=== PATIENT | female | born 1965 | race Caucasian/White ===

== ENCOUNTER 2021-08-09 10:03 | Emergency (ER) | payer BC, SELFPAY ==
--- NOTE | ~2021-08-09 | XR_ITS ---
EXAMINATION: XR chest 2V EXAM DATE: 08/09/2021 10:27 INDICATION: Palpitations, high blood pressure. TECHNIQUE: Frontal and lateral projections of the chest obtained and reviewed. Comparison is made to prior examination from 06/13/2015. FINDINGS: The lungs are clear. There are no pleural effusions. The cardiomediastinal silhouette is within normal limits. There is no pneumothorax suspected. The bones and soft tissues are unremarkab le. IMPRESSION: No acute cardiopulmonary findings. Reviewed, dictated and finalized at location B.
[2021-08-09 10:11] VITALS: BP 199/99; PULSE 88; RESP 16; TEMP 36.7; O2SAT 97
--- NOTE | 2021-08-09 10:15 | ECG_ITS ---
Measurements Intervals [place] Rate: 90 P: 60 ME: 149 QRS: 16 QRSD: 88 T: -5 QT: 343 QTc: 421 Interpretive Statements SINUS RHYTHM NONSPECIFIC T-WAVE ABNORMALITY ABNORMAL ECG NO PREVIOUS ECG AVAILABLE FOR COMPARISON Electronically Signed On 08-09-2021 15:53:45 CDT by Dimitris Flores M.D.
--- NOTE | 2021-08-09 10:19 | ED.ARRPALP ---
HPI - Arrhythmia/Palpitations General Chief Complaint: Arrhythmia/Palpitations Stated Complaint: increased HR Time Seen by Provider: 08/09/21 10:10 History of Present Illness HPI narrative: 55-year-old female with no medical history presents the emergency room complaints of palpitations and fast heart rate that occurred just prior to arrival. Patient states that she has experienced similar symptoms intermittently for several weeks. Patient states the duration of her fast heart rotations usually last 2 to 3 minutes and spontaneously resolve. Patient is not. Patient does admit to snoring at night. Patient denies near syncope or syncopal episode. Patient denies chest pain Related Data Allergies Allergy/AdvReac Type Severity Reaction Status Date / Time No Known Allergies Allergy Mild Verified 08/09/21 10:17 Review of Systems Review of Systems: CONSTITUTIONAL: Denies fever, chills, or sweats. EYES: Denies visual changes, redness, or discharge. ENT: Denies rhinorrhea, congestion, sore throat, or otalgia. CARDIOVASCULAR: Reports palpitations RESPIRATORY: Denies cough or dyspnea. GASTROINTESTINAL: Denies abdominal pain, nausea, vomiting, or diarrhea. GENITOURINARY: Denies dysuria or hematuria. SKIN: Denies rash or itching. MUSCULOSKELETAL: Denies back pain, joint pain, or myalgia. NEUROLOGIC: Denies headache, numbness, dizziness, or weakness. PSYCHIATRIC: Denies anxiety or depression. Exam Narrative: GENERAL: Well-appearing, well-nourished, and in no acute distress. HEAD: Normocephalic, atraumatic. EYES: PERRLA and EOMI. CHEST: Clear to auscultation. No respiratory distress. No wheezes rales or rhonchi HEART: Regular rate and rhythm. No murmur heard. Normal peripheral pulses. ABDOMEN: Soft, nontender, nondistended, normal active bowel sounds. EXTREMITIES: Normal range of motion. No edema. SKIN: Warm, dry, no rash. NEURO: No focal deficits. Alert and oriented x3. PSYCH: Normal mood and affect. Course Vital Signs Vital signs: Vital Signs Temperature 36.7 C 08/09/21 10:11 Pulse Rate 88 08/09/21 10:11 Respiratory Rate 16 08/09/21 10:11 Blood Pressure 199/99 H 08/09/21 10:11 Pulse Oximetry 97 08/09/21 10:11 Temperature 36.7 C 08/09/21 10:11 Pulse Rate 83 08/09/21 10:52 Respiratory Rate 18 08/09/21 10:52 Blood Pressure 169/93 H 08/09/21 10:52 Pulse Oximetry 99 08/09/21 10:52 MDM - Arrhythmia/Palpitations MDM Narrative Medical decision making narrative: 55-year-old female presented emergency room with palpitations of lasted approximately 10 minutes while at work. Patient states that she has been experiencing the symptoms intermittently for the past 3 to 6 months, but have become more regular over the last couple of weeks. Patient states that she does get shortness of breath and some dizziness associated with this palpitations. CBC, CMP and troponin were unremarkable. Will refer patient to cardiology for further evaluation. Differential Diagnosis Differential diagnosis: Likely palpitations Lab Data Attestation: I reviewed the patient's lab results. Result diagrams: 08/09/21 10:43 08/09/21 10:43 Labs: Lab Results 08/09/21 08/09/21 08/09/21 Range/Units 10:37 10:43 10:43 WBC 5.6 (4.5-10.0) K/mm3 RBC 4.62 (4.2-5.4) M/mm3 Hgb 13.7 (12.0-15.0) g/dL Hct 41.0 (37.0-47.0) % MCV 88.7 (80-100) fl MCH 29.7 (26-34) pg MCHC 33.4 (32-36) g/dl RDW 12.4 (11.5-14.5) % Plt Count 316 (150-375) k/mm3 MPV 9.0 (7.4-10.4) fl Immature Gran % (Auto) 0.2 (0-0.5) % Neut % (Auto) 65.6 (45.5-73.1) % Lymph % (Auto) 22.8 (18.3-44.2) % Harney % (Auto) 8.6 H (2.6-8.5) % Eos % (Auto) 2.3 (0-4.4) % Baso % (Auto) 0.5 (0.2-1.2) % Lymph # (Auto) 1.27 (0.9-3.2) K/mm3 Harney # (Auto) 0.5 (0.1-0.6) K/mm3 Eos # (Auto) 0.1 (0-0.3) K/mm3 Baso # (Auto) 0.0 (0.0-0.1) K/mm3 Abs Immat Gran (auto) 0
[2021-08-09 10:51] LABS: Basophils Percent Auto 0.5 % (0.2-1.2); Eosinophils Absolute Auto 0.1 K/mm3 (0-0.3); Eosinophils Percent Auto 2.3 % (0-4.4); Hemoglobin 13.7 g/dL (12.0-15.0); Immature Granulocyte Absolute 0.01 K/mm3 (0.00-0.031); Immature Granulocyte Percent A 0.2 % (0-0.5); Lymphocytes Absolute Auto 1.27 K/mm3 (0.9-3.2); Lymphocytes Percent Auto 22.8 % (18.3-44.2); Mean Corpuscular HGB Conc 33.4 g/dl (32-36); Mean Corpuscular Hemoglobin 29.7 pg (26-34); Mean Corpuscular Volume 88.7 fl (80-100); Monocytes Absolute Auto 0.5 K/mm3 (0.1-0.6); Monocytes Percent Auto 8.6 % (2.6-8.5); Neutrophils Absolute Auto 3.6 K/mm3 (1.3-6.7); Neutrophils Percent Auto 65.6 % (45.5-73.1); Platelet Count Result 316 k/mm3 (150-375); Red Blood Count 4.62 M/mm3 (4.2-5.4); Red Cell Distribution Width 12.4 % (11.5-14.5); White Blood Count 5.6 K/mm3 (4.5-10.0)
[2021-08-09 10:51] LABS: Appearance Urine Clear (Clear); Bilirubin Urine Negative (Negative); Blood Urine Trace-lysed (Negative); Color Urine Yellow (Yellow); Glucose Urine UA Negative (Negative); Ketones Urine Negative (Negative); Leukocyte Esterase Ur Negative LEU/UL (Negative); Nitrate Urine Negative (Negative); Protein Urine Negative (Negative); Specific Grav Ur 1.015 (1.001-1.035); Urobilinogen Urine 0.2 mg/dL (<2.0); pH Urine 6.5 (5.0-9.0)
[2021-08-09 10:52] VITALS: BP 169/93; PULSE 83; RESP 18; O2SAT 99
[2021-08-09 10:52] LABS: Add Urine Microscopic? YES
[2021-08-09 11:03] LABS: Bacteria Urine Trace /hpf; Mucus Urine Rare /lpf; RBC Urine 0-2 /hpf (0-2); Squamous Epithelial Cell Urine Rare /hpf (Few); WBC Urine 0-3 /hpf
[2021-08-09 11:06] LABS: Alanine Aminotransferase 31 U/L (4-35); Albumin Level 4.7 g/dL (3.5-5.1); Alkaline Phosphatase 80 U/L (38-126); Anion Gap 7 mmol/L (8-16); Aspartate Amino Transferase 38 U/L (14-36); Bilirubin,Total 0.7 mg/dL (0.2-1.3); Blood Urea Nitrogen 17 mg/dL (7-17); Calcium 9.1 mg/dL (8.4-10.2); Carbon Dioxide 25 mmol/L (22-30); Chloride 106 mmol/L (98-107); Estimated CRCL calculation 79 ml/min; Estimated Glomerular Filt Rate > 60; Glucose 108 mg/dL (65-110); Magnesium 1.9 mg/dL (1.6-2.3); Potassium 4.5 mmol/L (3.4-5.0); Sodium 138 mmol/L (137-145)
[2021-08-09 11:14] LABS: Troponin I < 0.012 ng/mL (0.000-0.034)
[2021-08-09 11:44] VITALS: BP 146/84; PULSE 82; RESP 18; O2SAT 97
[2021-08-09 12:06] VITALS: BP 160/92; PULSE 78; RESP 18; O2SAT 99
== END 2021-08-09 11:58 | disposition home or self-care (01) ==
PROVIDERS: Emergency Provider Nurse Practitioner Family
DX: R00.2 Palpitations (principal); R94.31 Abnormal electrocardiogram [ECG] [EKG]
CPT/HCPCS: 36415; 71046; 80053; 81001; 83735; 84484; 85025; 93005; 99284

== ENCOUNTER 2024-07-26 10:15 | Outpatient (CLI) | payer BC, SELFPAY ==
--- NOTE | ~2024-07-26 | MR_ITS ---
MRI of the right foot CLINICAL HISTORY: Metatarsalgia TECHNIQUE: Axial proton-density and proton-density fat-sat images, sagittal T1-weighted and STIR imag es, and coronal T1-weighted and proton-density fat-sat images were performed. FINDINGS: Questionable minimal amorphous marrow edema in the second proximal phalanx. Remaining bone marrow signals are unremarkable. No fracture. No evidence for osteitis. There are minimal scattered d egenerative changes of interphalangeal joints of the toes. There is minimal degenerative change at th e first metatarsophalangeal joint. No significant joint effusion seen. Flexor and extensor tendons are intact. Questionable minimal intermetatarsal bursitis at the first in terspace. No Cota's neuroma evident. No other soft tissue mass or fluid collection seen. Visualized plantar fascia intact. Lisfranc ligament is intact. IMPRESSION: Questionable minimal amorphous marrow edema in the second proximal phalanx. Correlate for bone contus ion or stress response. Minimal degenerative changes, as above. Probable minimal intermetatarsal bursitis at the first interspace. Reviewed, dictated and finalized at [facility]. IMPRESSION: Questionable minimal amorphous marrow edema in the second proximal phalanx. Cor relate for bone contusion or stress response. Minimal degenerative changes, as above. Probable minimal intermetatarsal bursitis at the first interspace.
--- OUTSIDE RECORDS SUMMARY | 2024-07-26 10:39 | XMS_ITS | CONTINUITY OF CARE DOCUMENT ---
Author Name macario tomatamika Address Unknown Organization [facility] Address [id number] [place] [address] [address] [place] [address] Phone [phone] Care Team Providers Care Harp Repairer Name Role Phone Radha BLOCK, Juan Francisco Gilliland Unavailable [phone] VANESA BLOCK, JAILYN Robison Unavailable VANESA BLOCK, JAILYN Robison Unavailable PROBLEMS Condition Status Date Provider Notes Cardiology examination active Virginie Garcia MD ASCUS of cervix with negativ e high risk HPV active Juan Francisco Garcia MD Imported from [employer] (21-Dec-2022 at 03:32:38 PM) Achilles tendinitis of right lower extremity active Juan Francisco Garcia MD Imported from [employer] [facility] (21-Dec-2022 at 03:32:38 PM) Asthma active ? Juan Francisco hamm MD Imported from [facility] [facility] (21-Dec-2022 at 03:32:38 PM) Congenital abnormality of uterus active ? Juan Francisco Garcia MD Imported from [facility] [facility] (21-Dec-2022 at 03:32:38 PM) Elevated CA-125 active Juan Francisco talbot MD Imported from [facility] [facility] (21-Dec-2022 at 03:32:38 PM) Headache active Juan Francisco hamm MD Imported from [facility] [facility] (21-Dec-2022 at 03:32:38 PM) History of section active Juan Francisco Garcia MD Imported from [facility] [facility] (21-Dec-2022 at 03:32:38 PM) Migraine active Juan Francisco hamm MD Imported from [facility] [facility] (21-Dec-2022 at 03:32:38 PM) Palpitations active Juan Francisco hamm MD Imported from [facility] [facility] (21-Dec-2022 at 03:32:38 PM) Plantar fasciitis of right foot active 7 Juan Francisco Garcia MD Imported from [facility] [facility] (21-Dec-2022 at 03:32:38 PM) Status post endometrial ablation active Juan Francisco Garcia MD Imported from [facility] [facility] (21-Dec-2022 at 03:32:38 PM) Tubal ligation status active Martínez Garcia MD Imported from [facility] [facility] (21-Dec-2022 at 03:32:38 PM) Tubal ligation status active Martínez Garcia MD Imported from [facility] (21-Dec-2022 at 03:32:38 PM) Verruca plantaris active Juan Francisco Garcia MD Imported from [facility] (21-Dec-2022 at 03:32:38 PM) Vitamin D deficiency active Juan Francisco Garcia MD Imported from [facility] (21-Dec-2022 at 03:32:38 PM) HTN essential active Juan Francisco king MD Hypercholesterolemia active Juan Francisco Garcia MD Snoring active Juan Francisco hamm MD Family Hx heart disease active Roshan Garcia MD SVT active Juan Francisco hamm MD ENCOUNTERS Date Type Provider Location Encounter Diag nosis - In-person encounter Office Visit Juan Francisco Garcia MD [facility] - In-person encounter Office Visit Juan Francisco Garcia MD [facility] Cardiology examinationASCUS of cervix wi th negative high risk HPVAchilles tendinitis of right lower extremityAsthmaCongenital abnormality of uterusElevated CA-125HeadacheHistory of sectionMigrainePalpitationsPlantar fasciitis of right footStatus post endometrial ablationTubal ligation statusTubal ligation statusVerruca plantarisVitamin D deficiencyHTN essentialHypercholesterolemiaSnoringFamily Hx heart diseaseSVT VITAL SIGNS Date Observation Value Provider Body Mass Index (Ratio) 32.73 kg/m2 Roshan Garcia MD blood pressure, diastolic 86 mm[Hg] cami Rebeca blood pressure, systolic 150 mm[Hg] She rrwashington Jose respiratory rate E&M 20 /min Laure Jose pulse rate 67 /min Laure Jose oxygen saturation, oximetry 98 % Laure Jose blood pressure, cuff size regular cami Jose weight E&M 184.8 [lb_av] Laure Jose height E&M 63 [in_i] Laure Jose weight E&M 188 [lb_av] Munira Bates polo Body Mass Index (Ratio) 33.30 kg/m2 Roshan Garcia MD pulse rate 71 /min Laure Jose blood pressure, diastolic 91 mm[Hg] cami Jose blood pressure, systolic 164 mm[Hg] She rrwashington Jose respiratory rate E&M 20 /min Laure Jose oxygen saturation, oximetry 96 % Laure Jose blood pressure, cuff size regular cami Jose weight E&M 188 [lb_av] Laure Jose height E&M 63 [in_i] Laure Rebeca ALLERGIES Allergy Name Onset Date Reaction Criticality Status Latex Unknown Low Criticality active HISTORY OF MEDICATION USE Medication Status Instructions Dates Provider Indications Com ments atorvastatin 20 mg tablet active TAKE 1 TABLET DAILY Kylia John Cardizem CD 120 mg capsule,extended release 24hr active Take 1 capsule by mouth once a day Bettina Ahmadi Cardizem CD 120 mg capsule,extended release 24hr completed Take 1 capsule by mouth once daily - Bettina Ahmadi atorvastatin 20 mg tablet completed Take 1 tablet by mouth once a day TAKE 1 TABLET BY MOUTH DAILY - Kati Lopez sertraline 100 mg tablet active 100 mg by mouth Juan Francisco Garcia MD Imported from [employer] (22-Dec-19 at 03:32:38 PM) scopolamine base 1 mg over 3 days patch 3 day completed null - Ian Ramírez NP Imported from [employer] (22-Dec-19 at 03:32:38 PM) rizatriptan 10 mg tablet,disintegra ting active null Juan Francisco Garcia MD Imported from [employer] [facility] (22-Dec-19 at 03:32:38 PM) phentermine 37.5 mg tablet completed null - Ian Ramírez NP Imported from [facility] (22-Dec-19 at 03:32:38 PM) omeprazole 20 mg capsule,delayed release(DR/EC) active null Juan Francisco Garcia MD Imported from [employer] [facility] (22-Dec-19 at 03:32:38 PM) montelukast 4 mg granules in packet completed 4 mg - Ian Ramírez NP Imported from [employer] [facility] (22-Dec-19 at 03:32:38 PM) IBUPROFEN 800 MG TABS completed 800 mg by mouth - Ian Ramírez NP Imported from [facility] (22-Dec-19 at 03:32:38 PM) ergocalciferol (vitamin D2) 1,250 mcg (50,000 unit) capsule active null Juan Francisco Garcia MD Imported from [facility] (22-Dec-19 at 03:32:38 PM) diclofenac sodium 75 mg tablet,delayed release (DR/EC) active null Juan Francisco Garcia MD Imported from [facility] (22-Dec-19 at 03:32:38 PM) albuterol sulfate 90 mcg/actuation HFA aerosol inhaler active null Juan Francisco Garcia MD Imported from [facility] (22-Dec-19 at 03:32:38 PM) COVID-19 antigen test completed null - Ian Ramírez NP Imported from [facility] (22-Dec-19 at 03:32:38 PM) alprazolam 0.25 mg tablet completed 0.25 mg by mouth - Ian Ramírez NP Imported from [facility] (22-Dec-19 at 03:32:38 PM) SOCIAL HISTORY Date Observation Value Provider social history reviewed E&M revi ewed - no changes required Ian Ramírez NP social history E&M S moking History: Lupillo vora has never smoked. Ian Ramírez NP smoking status Never smoker Laure Jose social history E&M S moking History: Lupillo vora has never smoked. Juan Francisco Garcia MD social history reviewed E&M revi ewed - no changes required Juan Francisco Garcia MD smoking status Never smoker Laure Jose INSURANCE PROVIDERS Payer name Policy type / Coverage type [employer] party ID [facility] [id number] ADVANCE DIRECTIVES Name Date DISCUSSED - NO DECISION MADE TREATMENT PLAN Date Name Performer [id number],C, T he following medications were removed from the medication list: Montelukast 4 Mg Granules In Packet (Montelukast) ..... 4 mg Her updated medication list for this problem includes: Albuterol Sulfate 90 Mcg/actuation Hfa Aerosol Inhaler (Albuterol sulfate) ..... Null Montelukast 4 Mg Granules In Packet (Montelukast) ..... 4 mg Ian Ramírez REX [id number],C, H ome sleep study in 12/05/2022 showed AHI 8 consistent with mild sleep apnea. S he reports that she uses a dental device Ian Ramírez BREAKER LAYER [id number],C, S he has had episodes of SVT per her apple watch with rates in 160-190s. S tarted Dilitiazem Ian Ramírez BREAKER LAYER [id number],C, T otal 250, TRI 179, HDL 50, LDL 164 (01/07/2023) H er updated medication list for this problem includes: Atorvastatin 20 Mg Tablet (Atorvastatin) ..... Take 1 tablet by mouth once a day take 1 tablet by mouth daily Ian Ramírez REX [id number],C, W ill need to be on BP meds, if we need to start we will do ditiliazam so it controls SVT as well February 15, 2023 E levated BP readings at home per patient record BP today: 150/86 P rior BP: 164/91 (12/21/2022) D ilitiazem started today Ian Ramírez REX [id number],C, Noted on tele from [facility]. not starting her on diltiazem yet as frequency is not established February 15, 2023 W ill start Dilitiazem 120 mg daily Ian Gleasonrama GOODMAN [id number],C,W ill need to be on BP meds, if we need to start we will do ditiliazam so it controls SVT as well Juan Francisco Garcia MD [id number],C,Needs home sl eep study Juan Francisco Garcia MD [id number],C,N oted on tele from [facility]. not starting her on tilziazem yet as frequency is not established Juan Francisco Garcia MD [id number],S,E teriugh fam hx of heart disease that she needs to be on chol med. Start lipitor Juan Francisco Garcia MD Cardiology: T he following medications were removed from the medication list: Montelukast 4 Mg Granules In Packet (Montelukast) ..... 4 mg Her updated medication list for this problem includes: Albuterol Sulfate 90 Mcg/actuation Hfa Aerosol Inhaler (Albuterol sulfate) ..... Null Montelukast 4 Mg Granules In Packet (Montelukast) ..... 4 mg Ian Ramírez NP Cardiology: H ome sleep study in 12/05/2022 showed AHI 8 consistent with mild sleep apnea. S he reports that she uses a dental device Ian Ramírez NP Cardiology: S he has had episodes of SVT per her apple watch with rates in 160-190s. S tarted Dilitiazem Ian Ramírez NP Cardiology: T otal 250, TRI 179, HDL 50, LDL 164 (01/07/2023) H er updated medication list for this problem includes: Atorvastatin 20 Mg Tablet (Atorvastatin) ..... Take 1 tablet by mouth once a day take 1 tablet by mouth daily Ian Ramírez NP Cardiology: W ill need to be on BP meds, if we need to start we will do ditiliazam so it controls SVT as well February 15, 2023 E levated BP readings at home per patient record B P today: 150/86 P rior BP: 164/91 (12/21/2022) D ilitiazem started today Ian Ramírez NP Cardiology: Noted on tele from [facility]. not starting her on diltiazem yet as frequency is not established February 15, 2023 W ill start Dilitiazem 120 mg daily Ina Ramírez NP Cardiology:Will need to be on BP meds, if we need to start we will do ditiliazam so it controls SVT as well Juan Francisco Garcia MD Cardiology:Needs home sleep stud y Juan Francisco Garcia MD Cardiology:Noted on tele from [facility]. not starting her on tilziazem yet as frequency is not established Juan Francisco Garcia MD Cardiology:Enough fa m hx of heart disease that she needs to be on chol med. Start lipitor Juan Francisco Garcia MD Date Name Lipoprotein (a) COMPREHENSIVE METABO LIC PANEL, W/EGFR LIPID PANEL CRP, high sensitivit y HEMOGLOBIN A1c Lipoprotein (a) LIPID PANEL COMPREHENSIVE METABO LIC PANEL, W/EGFR Carotid Duplex Bilat eral Sleep Study Home Stress Routine Complete Echo HISTORY OF PROCEDURES Procedure Date Procedure Name Provider Procedure Notes S tatus EKG Juan Francisco Garcia MD compl eted EKG Juan Francisco Garcia MD compl eted EKG Juan Francisco Garcia MD compl eted
--- OUTSIDE RECORDS SUMMARY | 2024-07-26 10:39 | XMS_ITS | Clinical Summary ---
Author Organization [facility] Address [address] [place] [address] Care Team Providers Care Panel Sewer Name Role Phone Fabiano Linda MD Primary Care Provider [phone] Allergies Active Allergy Reactions Criticality Noted Date Comments Latex Unknown 08/19/2013 Medications ALPRAZolam (XANAX) 0.25 mg tablet Take 1 Tab (0.25 mg) by mouth 3 times daily as needed for Anxiety. 60 Tab 5 5 Active montelukast (SINGULAIR) 4 mg Granules in Packet 4 mg. 6 Active albuterol sulfate 90 mcg/Actuation inhaler 1 Active sertraline (ZOLOFT) 100 mg tabletIndications :Well woman exam with routine gynecological exam Take 1 Tablet (100 mg) by mouth daily. 90 Tablet 2 3 Active diclofenac sodium (VOLTAREN) 75 mg Tablet, Delayed Release (E.C.) 2 times daily. Active scopolamine (TRANSDERM-SCOP) 1 mg/72 hr patch scopolamine 1 mg over 3 days transdermal patch APPLY 1 PATCH BEHIND EAR AT LEAST 4 HOURS PRIOR TO NEEDED EFFECT FOR USE UP TO 72 HOURS Active COVID-19 antigen test (Flowflex COVID-19 Ag Home Test) Kit Flowflex COVID-19 Antigen Home Test kit USE DIRECTED Active phentermine (ADIPEX P) 37.5 mg tablet Take 1 tablet every day by oral route. 3 Active omeprazole (PriLOSEC) 20 mg Capsule, Delayed Release(E.C.) Take 1 capsule every day by oral route. Active ergocalciferol (VITAMIN D2) 50,000 unit capsule TAKE 1 CAPSULE MONTHLY 3 Capsule 3 4 Active rizatriptan ([facility] EMERGENCY DEPARTMENT TECHNICIAN) 10 mg Tablet, Rapid DissolveIndicatio ns:Well woman exam with routine gynecological exam PLACE 1 TABLET ON THE TONGUE AND ALLOW TO DISSOLVE EVERY 2 HOURS NEEDED FOR MIGRAINE. MAY REPEAT IN 2 HOURS; MAXIMUM DOSE 30MG (3 TABLETS) IN 24 HOURS 12 Tablet 11 4 Active ibuprofen (MOTRIN) 800 mg tabletIndications :Well woman exam with routine gynecological exam Take 1 Tablet (800 mg) by mouth every 6 hours as needed for Pain, Mild. 100 Tablet 11 4 Active atorvastatin (LIPITOR) 20 mg tablet 1 po qhs Active cetirizine (ZyrTEC) 10 mg tablet Take 1 Tablet by mouth daily. Active doxycycline hyclate (VIBRAMYCIN) 100 mg tablet Take 1 Tablet by mouth 2 times daily. Active predniSONE (DELTASONE) 20 mg tablet Take 2 tablets every day by oral route for 5 days. 4 Active pseudoephedrine (Sudogest) 30 mg tablet 1-2 po q6 hours prn do not exceed 8 tabs in 24 hours 4 Active valACYclovir (VALTREX) 1 gram tablet Take 1 tablet every 12 hours by oral route for 7 days. 4 Active Active Problems Problem Noted Date Diagnosed Date Herpes zoster 08/19/2023 Allergic rhinitis 06/18/2023 Cough 06/09/2023 Acute sinusitis 06/05/2023 Obstructive sleep apnea syndrome 01/25/2023 Palpitations 10/22/2022 Verruca plantaris 06/19/2022 Plantar fasciitis of right foot 03/05/2018 Migraine 03/05/2018 Headache 03/05/2018 Achilles tendinitis of right lower extremity 10/2017 ASCUS of cervix with negative high risk HPV 11/28 Tubal ligation status 04/17/2012 Status post endometrial ablation 04/17/2012 Vitamin D deficiency 03/13/2011 Elevated CA-125 06/10/2010 Overview (06/10/2010): 36 Tubal ligation status 03/17/2009 History of section 03/17/2009 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 Updating IMO/ICD9 Code and Description Asthma Encounters Date Type Department Care Team Description 06/30/2024 External Device Data [facility] ABSTRACTION Provider, Abstract 06/17/2024 External Device Data [facility] ABSTRACTION Provider, Abstract 05/21/2024 External Device Data [facility] ABSTRACTION Provider, Abstract 05/12/2024 External Device Data [facility] ABSTRACTION Provider, Abstract from Last 3 Months Family History Medical History Relation Name Comments Unknown Brother 1 Alexei Unknown Brother 2 Kumar Unknown Brother 3 Ramu Healthy Daughter 1 Ary Healthy Daughter 2 Snehal Heart Disease Father Other Father Polio Heart Attack Maternal Grandfather Breast Cancer Maternal Grandmother Cancer Maternal Grandmother Bone High Cholesterol Mother Other Mother hip replacement Healthy Other H-[place]ong Unknown Paternal Grandfather Heart Disease Paternal Grandmother Unknown Sister Angelique Colon Cancer Neg Hx Relation Name Status Comments Brother 1 Alexei Alive Brother 2 Kumar Alive Brother 3 Ramu Alive Daughter 1 Ary Alive Daughter 2 Snehal Alive Father Maternal Grandfather Maternal Grandmother Mother Alive Other [place]ong Alive Paternal Grandfather Paternal Grandmother Sister Angelique Alive Social History Tobacco Use Types Packs/Day Years Used Date Smoking Tobacco: Never Smokeless Tobacco: Never Tobacco Cessation:Counseling Given: Not Answered Alcohol Use Standard Drinks/Week Comments Yes 0 (1 standard drink = 0.6 oz pur e alcohol) maybe a glass of wine a month Comments No Sex and Gender Information Value Date Recorded Sex Assigned at Not on file Legal Sex Female 5:35 AM PLATE MOLDER Gender Identity Not on file Sexual Orientation Not on file Last Filed Vital Signs Vital Sign Reading Time Taken Comments Blood Pressure 124/78 12/05/2020 10:54 AM CDT Pulse 60 03/09/2020 9:40 AM PLATE MOLDER Temperature 36.3 C (97.4 F) 03/09/2020 9:28 AM PLATE MOLDER Respiratory Rate 16 03/09/2020 9:40 AM PLATE MOLDER Oxygen Saturation 98% 03/09/2020 9:40 AM PLATE MOLDER Inhaled Oxygen Concentration - - Weight 86.6 kg (191 lb) 08/28/2023 10:13 AM CDT Height 160 cm (5' 3 ) 08/28/2023 10:13 AM CDT Body Mass Index 33.83 08/28/2023 10:13 AM CDT Plan of Treatment Health Maintenance Due Date Last Done Comments DTAP/TDAP/TD VACCINES (1 - Tdap) 11/08/1982 OSTEOPOROSIS SCREENING 2003 FIT-DNA Q 3 years 11/08/2008 FIT/FOBT Q 1 year 11/08/2008 Flex Sig/CT Colonography Q 5 years 11/08/2008 Pre-Diabetes and Diabetes Screening 06/07/2013 06/07/2010 ZOSTER VACCINE (1 of 2) 11/08/2013 HPV/Cotest (30-65) 09/05/2022 09/05/2017, 0 08/13/2016, 12/08/2014, Additional history exists RSV VACCINE (60+ or ) (1 - Risk 60-74 years 1-dose series) 2023 INFLUENZA VACCINE (#1) 2023 BREAST CANCER SCREENING 08/27/2024 08/28/19 24, 08/06/2022, 11/30/2019, Additional history exists CERVICAL CANCER SCREENING 08/27/2024 PAP SMEAR 08/27/2024 08/28/2023, 041 , 12/05/2020, Additional history exists PAP SMEAR 08/27/2024 08/28/2023, 1 , 12/05/2020, Additional history exists COLORECTAL SCREENING 03/09/2030 03/09/2020, 03/09/20 Colorectal Cancer Screening 03/09/2030 HEPATITIS B VACCINES Aged Out No long er eligible based on patient's age to complete this topic Procedures Procedure Name Priority Date/Time Associated Diagnosis Comments MAMMO 3D ENEDINA SCREEN BILAT W OR WO CAD Routine 08/28/2023 12:25 PM CDT Well woman exam with routine gynecological exam Visit for screening mammogram Herpes zoster without complication Symptomatic menopausal or female climacteric states Elevated CA-125 Other intra-abdominal and pelvic swelling, mass and lump CERV/VAG CYTO AGE BASED SCREEN PAP Routine 08/28/2023 10:29 AM CDT Well woman exam with routine gynecological exam Visit for screening mammogram Herpes zoster without complication Symptomatic menopausal or female climacteric states Elevated CA-125 Other intra-abdominal and pelvic swelling, mass and lump COLONOSCOPY REPORT 03/09/2020 9: 29 AM PLATE MOLDER CERV/VAG CYTOPATH, THIN PREP AND HPV W/RFLX GENOTYPES 16, 18/45 Routine 09/05/2017 4:54 PM CDT Well woman exam with routine gynecological exam HEMOGLOBIN A1C Routine 06/07/2010 11:15 AM PLATE MOLDER from Last 3 Months or Most Recently Relevant to Health Maintenance Results * MAMMO 3D ENEDINA SCREEN BILAT W OR WO CAD (08/28/2023 12:25 PM CDT) Anatomical Region Laterality Modality Breast Bilateral Mammography 08/28/2023 12:2 5 PM CDT Impressions 08/28/2023 12:52 PM CDT IMPRESSION: NO MAMMOGRAPHIC EVIDENCE OF MALIGNANCY. Prominent bilateral axillary lymph nodes. Please correlate clinically. OVERALL BIRADS CATEGORY:2 (benign findings). ROUTINE SCREENING MAMMOGRAPHY IS RECOMMENDED IN 12 MONTHS. A normal letter will be sent to patient. Narrative 08/28/2023 12:52 PM CDT EXAM: MAMMO 3D ENEDINA SCREEN BILAT W OR WO CAD STUDY DATE: 08/28/2023 12:25 PM CLINICAL INDICATION: 57 years old female presents for routine screening mammography. COMPARISON: Prior mammograms, the most recent dated 08/06/2022 PROCEDURE: CC and MLO digital mammographic views of the bilateral breasts are obtained. Computer Aided Detection (CAD) was utilized. Tomosynthesis was done with all views. FINDINGS: Breast Density: Scattered fibroglandular densities. Right breast: There is stable subcentimeter mass in the right outer breast at mid to posterior depth. There are no spiculated masses, suspicious microcalcifications or areas of architectural distortion in the right breast. Left breast: There are no spiculated masses, suspicious microcalcifications or areas of architectural distortion in the left breast. There are prominent bilateral axillary lymph nodes. us Evelio Marlow MD MAMMO ORDERABLES Final Resul t * CERV/VAG CYTO AGE BASED SCREEN PAP (08/28/2023 10:29 AM CDT) COMMENT (PAP): [facility] [place] Comment: This order for age-based cervical cancer and STI screening follows ACOG guidelines(PB 168, 140, MPS520). See individual assays for performing site location. CLINICAL INFORMATION [facility] [place] Comment: Routine exam WWE LAST MENSTRUAL PERIOD [facility] [place] Comment:NONE GIVEN PREV PAP: [facility] [place] Comment:NONE GIVEN PREV BX: [facility] [place] Comment:NONE GIVEN SOURCE [facility] [place] Comment:Endocervix ADEQUACY: [facility] [place] Comment:SATISFACTORY FOR MARIANO LUATION PAP INTERP [facility] [place] Comment: Cytology Results: Negative for intraepithelial lesion or malignancy. Atrophic pattern; predominantly parabasal cells COMMENT (PAP TEST) Q [facility]est [email or web address] [place] Comment: This Pap test has been evaluated with computer assisted technology. LICENSED OCCUPATIONAL THERAPIST: Jack [email or web address] [email or web address] Comment: YQ, CT(ASCP) CT screening location: [place] [address] [place] [address] EXPLANATORY NOTE Que [facility] [place] Comment: EXPLANATORY NOTE: The Pap is a screening test for cervical cancer. It is not a diagnostic test and is subject to false negative and false positive results. It is most reliable when a satisfactory sample, regularly obtained, is submitted with relevant clinical findings and history, and when the Pap result is evaluated along with historic and current clinical information. HPV E6/E7 Not Detected Not Detected [facility] Comment: Methodology: Relief Captain-Mediated Amplification This assay detects E6/E7 viral messenger RNA (mRNA) from 14 high-risk HPV types (16,18,31,33,35,39,45,51,52,56,58,59,66,68). Cervical sources are required for HPV testing. If a vaginal source from a patient who has had a total hysterectomy with removal of cervix was submitted, please contact the testing laboratory for alternative testing options. For additional information, please refer to http://education.My COI/faq/GSQ074c0 (This link if provided for information/ educational purposes only.) Test Performed at: [facility] [address] [place] [address] Venancio DURON Genital SWAB OF ENDOCERVIX / Unknown 08/28/2023 10:29 AM CDT 08/29/2023 1:38 AM CDT us Evelio Marlow MD PATHOLOGY/CYTOLOGY ORDERABLE S Final Result [facility] [phone] [facility] [address] [phone] * COLONOSCOPY REPORT (03/09/2020 9:29 AM PLATE MOLDER) Narrative Procedure Note Elizabeth Aaron DO - 03/09/2020 9:28 AM CST [facility] Endoscopy Patient Name: Dorene Wu Procedure Date: 03/09/2020 Date of : 1965 Admit Type: Outpatient Attending MD: Elizabeth Aaron MD Procedure: Colonoscopy Indications: Screening for colorectal malignant neoplasm, This is the patient's first colonoscopy Providers: Elizabeth Aaron MD Referring MD: Medicines: Monitored Anesthesia Care Complications: No immediate complications. Procedure: Informed consent was obtained for the procedure, including moderate sedation after risks were discussed. Based on the pre-procedure assessment, including review of the patient's medical history, medications, allergies, and review of systems, the patient was deemed to be an appropriate candidate for sedation. A timeout was performed. Continuous ECG monitoring, pulse oximetry, blood pressure monitoring, and direct observation were performed. The Colonoscope was introduced through the anus and advanced to the terminal ileum. The colonoscopy was performed without difficulty. The patient tolerated the procedure well. The quality of the bowel preparation was good. Estimated Blood Loss: Estimated blood loss was minimal. Findings: The perianal examination was normal. The colon (entire examined portion) appeared normal. The terminal ileum appeared normal. Hemorrhoids were found during retroflexion. Impression: - The entire examined colon is normal. - The examined portion of the ileum was normal. - Hemorrhoids. - No specimens collected. Recommendation: - Repeat colonoscopy in 10 years for screening purposes. Elizabeth Aaron MD 03/09/2020 9:28:32 AM This report has been signed electronically. Number of Addenda: [address]; [place] [address] Elizabeth Aaron DO GI PROCEDURE ORDERABLES Fin al Result * CERV/VAG CYTOPATH, THIN PREP AND HPV W/RFLX GENOTYPES 16, 18/45 (CP) (09/05/2017 4:54 PM CDT) CLINICAL INFORMATION SEE COMMENT 09/11/2017 3:25 PM CDT [facility] Comment:Information not prov ided LAST MENSTRUAL PERIOD ABLATION 09/11/2017 3:25 PM CDT [facility] PREV PAP: SEE COMMENT 09/11/2017 3:25 PM CDT [facility] Comment:08/13/16 NIL PREV BX: SEE COMMENT 09/11/2017 3:25 PM CDT [facility] Comment:Information not prov ided SOURCE Endocervix 09/11/2017 3:25 PM CDT [facility] ADEQUACY: SEE COMMENT 09/11/2017 3:25 PM CDT [facility] Comment: Satisfactory for evaluation. Endocervical/transformation zone component present. PAP INTERP SEE COMMENT 09/11/2017 3:25 PM CDT [facility] Comment:Negative for intraep ithelial lesion or malignancy. COMMENT SEE COMMENT 09/11/2017 3:25 PM CDT [facility] Comment: This Pap test has been evaluated with computer assisted technology. LICENSED OCCUPATIONAL THERAPIST: SEE COMMENT 2017 3:25 PM CDT [facility] Comment: MLK, CT(ASCP) CT screening location: [place] [address] [address] REVIEW LICENSED OCCUPATIONAL THERAPIST: SEE COMMENT 09/11/2017 3:25 PM CDT [facility] Comment: MEF, CT(ASCP) CT screening location: [place] [address] [address]ega EXPLANATORY NOTE SEE COMMENT 018 3:25 PM CDT [facility] Comment: EXPLANATORY NOTE: The Pap is a screening test for cervical cancer. It is not a diagnostic test and is subject to false negative and false positive results. It is most reliable when a satisfactory sample, regularly obtained, is submitted with relevant clinical findings and history, and when the Pap result is evaluated along with historic and current clinical information. HPV E6/E7 Not Detected Not Detected 09/11/2017 3:25 PM CDT [facility] Comment: This test was performed using the APTIMA HPV Assay ([employer] This assay detects E6/E7 viral messenger RNA (mRNA) from 14 high-risk HPV types (16,18,31,33,35,39,45,51,52,56,58,59,66,68). Genital SWAB OF ENDOCERVIX / Unknown Collection / Unknown 09/05/2017 4:54 PM CDT 09/05/2017 7:10 PM CDT Narrative [facility] - 09/11/2017 3:25 PM CDT Performing Organization Information: Site ID: [facility] Address: [address] [place] [address] Director: Venancio Marcos us Evelio Marlow MD PATHOLOGY/CYTOLOGY ORDERABLE S Final Result Performing Organization Address City/[facility] Co de Phone Number [facility] * HEMOGLOBIN A1C (06/07/2010 11:15 AM PLATE MOLDER) HEMOGLOBIN A1C 5.2 <5.7 % of total Hgb [facility] Comment: Decreased risk of diabetes <5.7 Decreased risk of diabetes 5.7-6.0 Increased risk of diabetes 6.1-6.4 Higher risk of diabetes > or = 6.5 Consistent with diabetes Standards of Medical Care in Diabetes-2010. Diabetes Care, 33(Supp 1): S1-S61,2009. Test Performed at: [facility] [address] [place] [address] CASSIA MOROCHO DO,MPH 06/07/2010 11:1 5 AM PLATE MOLDER us Evelio Marlow MD CHEMISTRY ORDERABLES Final R esult Performing Organization Address City/[facility]/ZIP Co de Phone Number INTERFACE SYSTEM Refer to clinic/hospital department [facility] [address] [place] [address] from Last 3 Months or Most Recently Relevant to Health Maintenance Insurance [employer] BLUE ACCESS/TRUE BLUE PPO Isela [facility] [address]Game [employer] BLUE ACCESS/TRUE BLUE PPO Care Teams Panel Sewer Relationship Specialty Start Date End Date Fabiano Linda MD [facility] [place] [address] PCP - General 11/05/07
--- OUTSIDE RECORDS SUMMARY | 2024-07-26 10:39 | XMS_ITS | Data Portability ---
Author Organization [place] - [facility] Masabi, Main Office Address [address] [place] [address] Assessment Encounter Date Assessment Date Assessment LastModified by Organization Details LastModified Time 08/20/2022 08/20/2022 This note is dictated and transcribed by [employer]. Aircraft Maintenance Engineer variances may occur. Despite proofreading, typographical errors may occur. Not available 08/20/2022 17:38:12 09/03/2022 09/03/2022 This note is dictated and transcribed by [employer]. Aircraft Maintenance Engineer variances may occur. Despite proofreading, typographical errors may occur. Not available 09/04/2022 18:20:32 09/27/2022 09/27/2022 This note is dictated and transcribed by [employer]. Aircraft Maintenance Engineer variances may occur. Despite proofreading, typographical errors may occur. Not available 10/08/2022 15:00:36 Plan of Treatment Reminders Order Date Submit Date Provider Last Modified By Organization Details Last Modified Time Details Appointments None recorded. Lab None recorded. Referral cardiologis t referral - Please call patient to schedule an appointment . 2022 023 [email or web address] Dimitris Sandra, [address] [facility] [address], [place], [address], 4 10:35:26 Procedures None recorded. Surgeries None recorded. Imaging home sleep study - *please call pt to schedule* 2022 023 [email or web address] [address] [facility], [address] [facility], [place], [address], 3 12:44:17 Medication Orders rizatriptan 10 mg disintegrat ing tablet 2022 023 [facility], [place], [address], 16:53:36 montelukast 10 mg tablet 2022 023 [facility], [place], [address], 16:53:36 phentermine 37.5 mg tablet [address] [id number], [address], [place], [place], [id number], 16:50:46 Patient TargetsNo targets recorded. Patient InstructionsNo instructions recorded. 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 Referring Physician: Oksana Glover, Family Medicine, Encounter Date: 10/22/2022 Results Created Date Observation Date Name Description Value Unit Range Abnormal Flag Note LastModifiedBy Organization Detail LastModifiedTime 12/08/1912/05/2022 home sleep study No observ ation record ed. [email or web address] Not Available 2023 09:38:45 12/28/1912/05/2022 home sleep study No observ ation record ed. [email or web address] [facility] [address], [place], [address], 09/06/2023 09:38:46 01/11/20 23 12/05/2022 home sleep study No observ ation record ed. [email or web address] [facility] [address] [place], [address], 09/06/2023 09:38:46 01/22/20 23 01/21/2023 cardi ac stres s test No observ ation record ed. [email or web address] [facility] [address], [place], [address], 09/06/2023 10:11:18 01/24/20 23 01/21/2023 US, carot id arter y No observ ation record ed. [email or web address] [email or web address] [facility] [address], [place], [address], 09/06/2023 10:11:35 01/24/20 23 01/21/2023 US, echoc ardio gram No observ ation record ed. [email or web address] [address], [place], [address], 09/06/2023 10:11:49 Result Notes None recorded. Problems Name Problem SNOMED Code Status Onset Date Resolution Date Notes Provider Name and Address Organization Details Recorded Time Plantar fasciitis of left foot 5743011837568 9101 Active 2022 Not Available [facility] 3 03:00:12 Plantar fasciitis of right foot 7082183084074 9101 Active 2017 Not Available [facility] 3 03:00:12 Headache 10155089 Active 2017 Not Available [facility] 3 03:00:12 Right Achilles tendinitis 6589959224831 02 Active 2017 Not Available [facility] 3 03:00:12 Migraine 85172458 Active 2017 Not Available [facility] 3 03:00:12 Verruca plantaris 38088957 Active 2022 Not Available [facility] 3 03:00:12 Palpitatio ns 32793667 Active 2022 Not Available [facility] 3 03:00:12 Sleep apnea 98553446 Active 2022 Not Available [facility] 3 03:00:12 Obstructiv e sleep apnea syndrome 36563177 Active 2022 Oksana Glover MD [address] [place] [address], [place] [address], [place], [address] , [employer] 3 10:40:32 Acute sinusitis 89746183 Active 2023 KRYSTAL Ayon [address], [place] [address], [place], [address] , [employer] 4 12:11:16 Cough 37309073 Active 2023 Oksana Glover MD [address], [place] [address], [place], [address] , [employer] 4 13:31:08 Allergic rhinitis 86856203 Active 2023 Oksana Glover MD [address], [place] [address], [place], [address] , [employer] 4 08:05:35 Herpes zoster 7503732 Active 2023 Oksana Glover MD [address], [place] [address], [place], [address] , [employer] 4 11:16:54 Notes:Oksana Glover MD [facility] home sleep study 12/05/22 AHI = 8, supine AHI = 23 Medical History: Depression Migraine headaches Rhinitis Obesity with mild OSAHS, AHI = 8, 12/05/22 KEATON Bilateral plantar fasciitis Procedure History: T&A D&C C-sections 2001, 2002 ENSS 2017 Problem Notes None recorded. Procedures Surgical History Date Name Laterality Status Provider Name and Address Organization Details Recorded Time 3 Destruction lesion (cryo, hyfrecation, scissors or chemical) completed Maxwell Hanks DPM [address], [address], [place], [address], [employer] 09/04/2022 18:19:52 3 Destruction lesion (cryo, hyfrecation, scissors or chemical) completed Maxwell Hanks DPM [address], [address], [place], [address], [employer] 08/20/2022 17:37:07 3 Destruction lesion (cryo, hyfrecation, scissors or chemical) completed Maxwell Hanks DPM [address] [facility], [address], [place], [address], [facility] [employer] [facility] 08/06/2022 16:53:54 Imaging Results Imaging Date Name Status LastModified by Organization Details LastModified Time 12/05/2022 [email or web address] Informat ion not available 09/06/2023 09:38:45 12/05/2022 home sleep study completed [email or web address] [facility] [address], [place], [address], 09/06/2023 09:38:46 12/05/2022 home sleep study [facility] [address], [place], [address], 09/06/2023 09:38:46 01/21/2023 cardiac stress test [facility] [address], [place], [address], 09/06/2023 10:11:18 01/21/2023 US, carotid artery completed [facility] [address], [place], [address], 09/06/2023 10:11:35 01/21/2023 US, echocardiogram completed [facility] [address], [place], [address], 09/06/2023 10:11:49 Procedure Notes None recorded. Medical Equipment None Reported. Medications Name Sig Start Date Stop Date Status Note LastModified by Organization Details LastModified Time atorvastati n 20 mg tablet 1 po qhs active Not Available Not Available Not Available cetirizine 10 mg tablet TAKE 1 TABLET BY MOUTH EVERY DAY active Not Available Not Available No t Available azithromyci n 250 mg tablet TAKE DIRECTED 06/19 completed Not Available Not Available Not Available IBU 800 mg tablet 1 po tid (alternat es with diclofena c) active Not Available Not Available No t Available benzonatate 200 mg capsule 06/19 completed Not Available Not Available Not Available valacyclovi r 1 gram tablet TAKE 1 TABLET BY MOUTH EVERY 12 HOURS FOR 7 DAYS active Not Available Not Available No t Available meloxicam 15 mg tablet Take 1 tablet every day by oral route with meals for 90 days. 06/19 completed Not Available Not Available Not Available prednisone 20 mg tablet TAKE 2 TABLETS BY MOUTH EVERY DAY FOR 5 DAYS active Not Available Not Available No t Available rizatriptan 10 mg tablet 06/19 completed Not Available Not Available Not Available sertraline 100 mg tablet 1/2 po qday active Not Available Not Available No t Available phentermine 37.5 mg tablet Take 1 tablet every day by oral route. 01/10 completed Not Available Not Available Not Available Sudogest 30 mg tablet 1-2 po q6 hours prn do not exceed 8 tabs in 24 hours 2023 active Not Available Not Available Not Avai lable rizatriptan 10 mg disintegrat ing tablet 1 po qday prn migraine active Not Available Not Available No t Available oseltamivir 75 mg capsule 06/19 completed Not Available Not Available Not Available omeprazole 20 mg capsule,del ayed release Take 1 capsule every day by oral route. active Not Available Not Available No t Available diclofenac sodium 75 mg tablet,suresh yed release TAKE 1 TABLET BY MOUTH TWICE DAILY WITH MEALS active Not Available Not Available No t Available diltiazem CD 120 mg capsule,ext ended release 24 hr TAKE 1 CAPSULE BY MOUTH EVERY DAY active Not Available Not Available No t Available montelukast 10 mg tablet 1 po qday active Not Available Not Available No t Available ergocalcife rol (vitamin D2) 1,250 mcg (50,000 unit) capsule active Not Available Not Available Not Available scopolamine 1 mg over 3 days transdermal patch APPLY 1 PATCH BEHIND EAR AT LEAST 4 HOURS PRIOR TO NEEDED EFFECT FOR USE UP TO 72 HOURS 10/22 completed Not Available Not Available Not Available methylpredn isolone 4 mg tablets in a dose pack FOLLOW PACKAGE DIRECTION S active Not Available Not Available No t Available albuterol sulfate HFA 90 mcg/actuati on aerosol inhaler active Not Available Not Available Not Available doxycycline hyclate 100 mg tablet TAKE 1 TABLET BY MOUTH TWICE DAILY FOR 7 DAYS active Not Available Not Available No t Available rosuvastati n 20 mg tablet active Not Available Not Available Not Available [employer] COVID-19 Antigen Home Test kit USE DIRECTED 10/22 completed Not Available Not Available Not Available Vitals Date Recorded Body height Heart rate Respiratory rate Oxygen saturation Oxygen saturation in Arterial blood by Pulse oximetry Systolic blood pressure Diastolic blood pressure Provider Name and Address Organization Details Last Updated DateTime 3 160.02 cm 62 /min 14 /min 98 % 98 % 150 mm[Hg] 93 mm[Hg] Rebeca Preston [place] [employer] [facility] [employer] [facility] 3 17:08:37 Date Recorded Body height Heart rate Respiratory rate Oxygen saturation Oxygen saturation in Arterial blood by Pulse oximetry Systolic blood pressure Diastolic blood pressure Provider Name and Address Organization Details Last Updated DateTime 3 160.02 cm 67 /min 14 /min 99 % 99 % 151 mm[Hg] 80 mm[Hg] Rebeca Preston [employer] [facility] [employer] [facility] 3 17:40:29 Date Recorded Body height Heart rate Respiratory rate Oxygen saturation Oxygen saturation in Arterial blood by Pulse oximetry Systolic blood pressure Diastolic blood pressure Provider Name and Address Organization Details Last Updated DateTime 3 160.02 cm 68 /min 14 /min 99 % 99 % 149 mm[Hg] 87 mm[Hg] Rebeca Preston [place] [employer] [facility] [employer] [facility] 3 17:44:12 Date Recorded Body height Body mass index (BMI) Body weight Body temperature Heart rate Oxygen saturation Oxygen saturation in Arterial blood by Pulse oximetry Systolic blood pressure Diastolic blood pressure Provider Name and Address Organization Details Last Updated DateTime 3 160.02 cm 33.5 kg/m2 66189.9 6 g 97.1 [degF] 67 /min 96 % 96 % 136 mm[Hg] 82 mm[Hg] Korey Santos RN [facility] [employer] [facility] 3 08:17:43 Date Recorded Body height Body mass index (BMI) Body weight Body temperature Heart rate Oxygen saturation Oxygen saturation in Arterial blood by Pulse oximetry Systolic blood pressure Diastolic blood pressure Provider Name and Address Organization Details Last Updated DateTime 3 160.02 cm 33.5 kg/m2 50740.9 6 g 98.2 [degF] 68 /min 97 % 97 % 162 mm[Hg] 84 mm[Hg] Korey Santos RN [place] [facility] 16:37:44 Social History Question Answer Notes LastModified by Organizat ion Details LastModified Time Tobacco Smoking Status Never Smoker Not Available [employer] 06/27/2022 20:18:45 What Is Your Level Of Alcohol Consumption? Occasional [id number] Information not available 06/27/2022 What Is Your Level Of Caffeine Consumption? Occasional [id number] Information not available 06/27/2022 What Was The Date Of Your Most Recent Tobacco Screening? 10/22/2022 [email or web address] Information not available 10/22/2022 Have You Ever Been Counseled For Unhealthy Alcohol Use? No [id number] Information not available 06/27/2022 Do You Use Any Illicit Or Recreational Drugs? No [id number] Information not available 06/27/2022 Has Tobacco Cessation Counseling Been Provided? No [id number] Information not available 06/27/2022 Do You Or Have You Ever Used Any Other Forms Of Tobacco Or Nicotine? No [id number] Information not available 06/27/2022 Sex: Unknown Functional Status None recorded. Mental Status None recorded. Family History Relationship Description Onset Age of this Age Resolved Age Notes LastModified by Organization Details LastModified Time Maternal Grandmother Malignant tumor of breast [id number] Not available 06/27/2022 20:18:48 Brother Cerebrovascu lar accident [email or web address] Not available 08:23:05 Brother Myocardial infarction [email or web address] Not available 10/22 08:23:14 Medical History Condition Response HEADACHES/MIGRAINES Y HEART DISEASE/HEART PROBLEMS Y DEPRESSION (INCLUDING POST ) Y BACK / NECK PROBLEMS Y Gynecological HistoryNo gynecological history recorded. Obstetrics History GPAL:G 0 P 0 0 0 0 Past Encounters Encounter ID Performer Location Encounter Start Date Encounter Closed Date Diagnosis/Indication Diagnosis SNOMED-CT Code Diagnosis ICD10 Code Diagnosis Note [id number] [facility] Pod[facility] [place] [address] [facility], [facility] [address] [place] [address] 06/19/2022 00:00:00 06/20/2022 10:08:36 [id number] Maxwell Hanks DPM [facility] Pod[facility] [place] [address] [place] [address] 08/06/2022 16:11:57 08/06/2022 17:02:04 Verruca plantaris 07374407 B07.0 Resolved right footLeft foot treated todayconti nue salicylic acid treatments daily until resolvedif blistering occurs DC medication and allow to heal monitor for signs of infection if present seek medical attention immediatel yFollow-up 2 weeks Plantar fa sciitis of left foot 0891847665 9536462 M72.2 continue current therapy with over-the-c ounter insertsCon tinue stretching exercisess teroid shot did significan tly helpFollow -up in 3-4 weeks, possible repeat injectionr ecommend better shoe gear, new balance [id number] Maxwell Hanks DPM [facility] Pod[facility] [place] [address] [place] [address] 08/20/2022 17:02:07 08/20/2022 17:53:28 Verruca plantaris 70223101 B07.0 Resolved right footLeft foot treated todayconti nue salicylic acid treatments daily until resolvedif blistering occurs DC medication and allow to heal monitor for signs of infection if present seek medical attention immediatel yFollow-up 2 weeks Plantar fa sciitis of left foot 9978341541 3652680 M72.2 continue current therapy with over-the-c ounter insertsCon tinue stretching exercisesR ecommend physical therapy but patient does not want to goFollow-u p in 3-4 weeks, possible repeat injectionr ecommend better shoe gear, new balance-- in sandals today [id number] Maxwell Hanks DPM [facility] Pod[facility] [place] [address] [place] [address] 09/03/2022 17:34:21 09/10/2022 16:45:46 Verruca plantaris 98362801 B07.0 Right heelcontin ue salicylic acid treatments daily until resolvedif blistering occurs DC medication and allow to heal monitor for signs of infection if present seek medical attention immediatel yFollow-up 2-3 weeks [id number] Maxwell Hanks DPM [facility] Pod[facility] [place] [address] [place] [address] 09/27/2022 17:40:55 10/09/2022 13:30:41 Verruca plantaris 97996768 B07.0 Right heel- Resolveddi scontinue use of salicylic acid treatments Daily hygiene the feeteducat ed on hygiene of shoe gear to prevent recurrence Follow-up as needed [id number] Oksana Glover MD [facility] Primary Care [facility] [address] [place] [address] 10/22/2022 08:13:02 10/22/2022 09:12:27 Palpitations 75710232 R00.2 has family h/o cardiovasc ular diseasecar diology referral given Sleep apnea 98673192 G47 .30 snoring, excessive daytime somnolence , and apneic events Dietary ma [place] surveillance 492372116 Z71.3 will check with insurance regarding coverage for wegovychec k blood work results done in fallDiscus sed healthy diet/exerc iseReviewe d potential med s/e, d/c and be seen if any chest pain, sobf/u in 4 weeks or sooner if needed [id number] Oksana Glover MD [facility] Primary Care [facility] [address] [place] [address] 01/10/2023 16:32:16 01/10/2023 16:59:02 Renewal of prescription 371232243 Z76.0 Migraine 84869573 G43.90 9 Obstructiv e sleep apnea syndrome 21523388 G47.33 doing well with mouth guard Health Concerns Section Related Observation LastModified by Organization Detai ls LastModified Time None Recorded Concern Status LastModified by Organization Details LastModified Time None Recorded Advance Directives Directive None Recorded Payers Encounter Date Sequence Insurance Name Policy Number Policy Echavarria Covered Member ID Echvaarria Member ID Guarantor Name 08/20/2022 1 [place] [id number] Amandeep Wu [id number] Dorene E Branding 09/03/2022 1 [place] [id number] Amandeep Branding [id number] Dorene E Branding 09/27/2022 1 [place] [id number] Amandeep Branding [id number] Dorene E Branding 10/22/2022 1 [place] [id number] Amandeep Branding [id number] Dorene E Branding 01/10/2023 1 [place] [id number] Amandeep Branding [id number] Dorene E Branding Notes Date Note Type Note Provider Name and Address Organization Details Recorded Time 08/20/2022 text/html . Patient is a 56-year-old female who returns the office for follow-up on bilateral warts to the heels. Patient states she is not using the medication daily. Patient denies any signs of infection to the area. Patient denies any pain.Patient states her plantar heel pain is starting to get more painful. Patient is in sandals today. I explained to the patient that she should be in supportive shoe gear which she understands. Patient states that she also does not want to go to physical therapy and states she will continue at-home therapy which he is not doing as indicated. Patient rejects a steroid shot today. patient states that when she is standing or walking for long periods of time she has more pain. Patient denies any other pedal complaints. Maxwell Hanks DPM [address] [facility], [facility] [address], [place], [address], [facility] [employer] 08/20/2022 17:40:20 09/03/2022 text/html . Patient is a 56-year-old female who returns the office for follow-up on wart to bilateral feet. Patient has healed a left foot wart and continues have a small wart to the plantar right heel. Patient states that she has been applying salicylic acid to the area daily. Patient denies any open wounds or signs of infection. Patient denies any pain to the area. Patient denies any other pedal complaints. Maxwell Hanks DPM [address], [place], [address], [employer] 09/04/2022 18:21:30 09/27/2022 text/html . Patient is a 56-year-old female who returns the office for follow-up on plantar wart. Patient states that she has continued topical use and states that she is no longer having any problems with her feet. Patient leaves the area is healed. Patient denies any other issues. Maxwell Hanks DPM [address], [address], [place], [address], [employer] 10/08/2022 15:00:50 10/22/2022 text/html Here to blanche gann 1 year ago she had an episode of palpitations that would not go away. She was seen in ER and had f/u heart monitor in the fall. It showed 4 episodes with her heart that she was told were non-worrisome. She does have continued episodes of palpitations, deep breaths usually help. They happen rapidly. She is not as physically active as she would to be. She is tired, does not feel rested in AM. She snores loudly, apneic events, daytime somnolence. Thinks last blood work was in the fall Oksana Glover MD [address], [place], [address], [employer] 10/26/2022 13:52:51 01/10/2023 text/html mild sleep apnea-mouth guard seems to be helping home bps are normal no chest pain or sob Oksana Glover MD [address], [place], [address], [employer] 01/25/2023 10:40:53 OBGyn Episode No OBEpisode recorded.
--- OUTSIDE RECORDS SUMMARY | 2024-07-26 10:39 | XMS_ITS | Referral Summary ---
Author Organization [facility] Address [address] [place] [address] Phone Care Team Providers Care Assistant Nurse Manager Name Role Phone Osvaldo Rios MD Primary Care Provi mehdi Encounters Date Type Department Care Team Description 06/30/2024 2:45 PM INTENSIVE CARE SPECIALIST Office Visit [facility] Sleep Medicine at [address] [place] [address] Karly Scanlon MD Obstructive sleep apnea (Primary Dx); Hypersomnia; Obesity, unspecified class, unspecified obesity type, unspecified whether serious comorbidity present 06/02/2024 3:00 PM INTENSIVE CARE SPECIALIST Office Visit [facility] Cardiology at [address] [place] [address] Dimitris Flores MD MAGALYS (obstructive sleep apnea) (Primary Dx); Essential hypertension; Hyperlipidemia LDL goal <100; PSVT (paroxysmal supraventricular tachycardia) from Last 3 Months Allergies No known active allergies Medications ibuprofen (ADVIL,MOTRIN) 800 mg tablet Take 1 tablet (800 mg total) by mouth every 6 (six) hours as needed for pain Active dilTIAZem CD/XR/XT (CARDIZEM CD,DILACOR XR) 120 mg 24 hr capsuleIndications:P alpitations,PSVT (paroxysmal supraventricular tachycardia),Essenti al hypertension Take 1 capsule (120 mg total) by mouth daily 90 capsule 3 4 025 Active rosuvastatin (CRESTOR) 20 mg tabletIndications:Hy perlipidemia LDL goal <100 Take 1 tablet (20 mg total) by mouth daily 90 tablet 3 4 025 Active rizatriptan (MAXALT) 10 mg tabletIndications:Mi graine Take 1 tablet (10 mg total) by mouth once as needed for migraine May repeat in 2 hours if unresolved. Do not exceed 30 mg in 24 hours. 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 Updating IMO/ICD9 Code and Description Essential hypertension 09/06/2023 MAGALYS (obstructive sleep apnea) 09/06/2023 PSVT (paroxysmal supraventricular tachycardia) 0 09/06/2023 Hyperlipidemia LDL goal <100 09/06/2023 Herpes zoster 08/19/2023 Migraine 03/04/2018 ASCUS of cervix with negative high risk HPV 11/28 Vitamin D deficiency 03/13/2011 Elevated CA-125 06/10/2010 Overview (12/06/2023): 36 Resolved Problems Problem Noted Date Diagnosed Date Resolved Date Palpitations 09/06/2023 12/06/2023 Allergic rhinitis 06/18/2023 12/06/2023 Cough 06/09/2023 12/06/2023 Acute sinusitis 06/05/2023 12/06/2023 Plantar fasciitis of left foot 06/18/2022 12/06/2023 Verruca plantaris 06/18/2022 12/06/2023 Achilles tendinitis of right lower extremity 8 12/06/2023 Headache 03/04/2018 12/06/2023 Plantar fasciitis of right foot 03/04/2018 12/06/2023 Immunizations Immunization Administration Dates Next Due Influenza, Unspecified 12/26/2023(Deferr ed: Patient Refused),06/30/2023(Deferred: Patient Refused),06/27/2022(Deferred: Patient Refused) Social History Tobacco Use Types Packs/Day Years Used Date Smoking Tobacco: Never Smokeless Tobacco: Never Tobacco Cessation:Counseling Given: Not Answered Alcohol Use Standard Drinks/Week Comments Yes 0 (1 standard drink = 0.6 oz pur e alcohol) PHQ-2 Answer Date Recorded PHQ-2 Total Score (If total score is 3 or more points, staff should administer the PHQ-9) 0 12/06/2023 Comments Unknown Sex and Gender Information Value Date Recorded Sex Assigned at Not on file Legal Sex Female 4:04 AM INTENSIVE CARE SPECIALIST Gender Identity Not on file Sexual Orientation Not on file Last Filed Vital Signs Vital Sign Reading Time Taken Comments Blood Pressure 150/84 06/30/2024 2:46 PM INTENSIVE CARE SPECIALIST Pulse 66 06/30/2024 2:46 PM INTENSIVE CARE SPECIALIST Temperature 36.8 C (98.3 F) 04/20/2024 2:12 PM INTENSIVE CARE SPECIALIST Respiratory Rate 24 04/20/2024 2:12 PM INTENSIVE CARE SPECIALIST Oxygen Saturation 99% 06/30/2024 2:46 PM INTENSIVE CARE SPECIALIST Inhaled Oxygen Concentration - - Weight 90.2 kg (198 lb 12.8 oz) 06/30/2024 2:46 PM INTENSIVE CARE SPECIALIST Height 161.3 cm (5' 3.5 ) 06/30/2024 2:46 PM INTENSIVE CARE SPECIALIST Body Mass Index 34.66 06/30/2024 2:46 PM INTENSIVE CARE SPECIALIST Plan of Treatment Not on file Procedures Procedure Name Priority Date/Time Associated Diagnosis Comments HM COLONOSCOPY Routine 03/09/2020 3:10 PM INTENSIVE CARE SPECIALIST from Last 3 Months or Most Recently Relevant to Health Maintenance Results * HM COLONOSCOPY (03/09/2020 3:10 PM INTENSIVE CARE SPECIALIST) Elizabeth Aaron DO HEALTH MAINTENANCE Fi nal Result from Last 3 Months or Most Recently Relevant to Health Maintenance Insurance [employer] Care Teams Assistant Nurse Manager Relationship Specialty Start Date End Date Osvaldo Rios MD [address] [place] [address] PCP - General Family Medicine 12/06/23
--- OUTSIDE RECORDS SUMMARY | 2024-07-26 10:40 | XMS_ITS | Clinical Summary ---
Author Organization [facility] Address [address] [place] [address] Phone Care Team Providers Care Industrial Maintenance Tech Name Role Phone Osvaldo Rios MD Primary Care Provi mehdi Allergies No known active allergies Medications ibuprofen [...] Plantar fasciitis of right foot 03/04/2018 12/06/2023 Encounters Date Type Department Care Team Description 06/30/2024 2:45 PM MODULAR HOME CREW MEMBER Office Visit [facility] Sleep Medicine at [address] [place] [address] Karly Scanlon MD Obstructive sleep apnea (Primary Dx); Hypersomnia; Obesity, unspecified class, unspecified obesity type, unspecified whether serious comorbidity present 06/02/2024 3:00 PM MODULAR HOME CREW MEMBER Office Visit [facility] Medical [facility] Cardiology at [address] [place] [address] Dimitris Flores MD MAGALYS (obstructive sleep apnea) (Primary Dx); Essential hypertension; Hyperlipidemia LDL goal <100; PSVT (paroxysmal supraventricular tachycardia) from Last 3 Months Immunizations Immunization Administration Dates Next Due Influenza, Unspecified 12/26/2023(Deferr ed: Patient Refused),06/30/2023(Deferred: Patient Refused),06/27/2022(Deferred: Patient Refused) Surgical History Surgery Date Site/Laterality Comments DILATION AND CURETTAGE OF UTERUS SECTION TONSILLECTOMY NOSE SURGERY 04/29/2017 - 04/28/2018 Medical History Medical History Date Comments Sleep apnea Palpitations Depression Migraine Plantar fasciitis Family History Medical History Relation Name Comments Cerebral aneurysm Brother x 3 Heart attack Brother x 3 Atrial fibrillation Mother Hyperlipidemia Mother No Known Problems Sister Relation Name Status Comments Brother x 3 Alive Father Mother Alive Sister Alive Social History Tobacco Use Types Packs/Day [...] on file Legal Sex Female 4:04 AM MODULAR HOME CREW MEMBER Gender Identity Not on file Sexual Orientation Not on file Obstetrics History Last Filed Vital Signs Vital Sign Reading Time Taken Comments Blood Pressure 150/84 06/30/2024 2:46 PM MODULAR HOME CREW MEMBER Pulse 66 06/30/2024 2:46 PM MODULAR HOME CREW MEMBER Temperature 36.8 C (98.3 F) 04/20/2024 2:12 PM MODULAR HOME CREW MEMBER Respiratory Rate 24 04/20/2024 2:12 PM MODULAR HOME CREW MEMBER Oxygen Saturation 99% 06/30/2024 2:46 PM MODULAR HOME CREW MEMBER Inhaled Oxygen Concentration - - Weight 90.2 kg (198 lb 12.8 oz) 06/30/2024 2:46 PM MODULAR HOME CREW MEMBER Height 161.3 cm (5' 3.5 ) 06/30/2024 2:46 PM MODULAR HOME CREW MEMBER Body Mass Index 34.66 06/30/2024 2:46 PM MODULAR HOME CREW MEMBER Plan of Treatment Health Maintenance Due Date Last Done Comments Cervical Cancer Screening 1965 Hepatitis C Screening 1965 DTaP/Tdap/Td Vaccine (1 - Tdap) 11/08/1974 Hepatitis B Screening 11/08/1981 Regular Well Visit/Exam 18-64 11/08/1981 Pneumococcal vaccine <65 (1 of 2 - PCV) 11/08/1982 Zoster Vaccine (1 of 2) 11/08/2013 Covid-19 Vaccine (2 - 2023-2 5 season) 2023 11/15/2020 Influenza Vaccine (#1) 2023 Breast Cancer Screening-Mammogram 08/27/2024 08/28/2023, 08/28/2023, 08/06/2022, Additional history exists Depression Screening 12/05/2024 12/06/2023 Colon Cancer Screening-Colonoscopy 03/09/20302019 Procedures Procedure Name Priority Date/Time Associated Diagnosis Comments HM COLONOSCOPY Routine 03/09/2020 3:10 PM MODULAR HOME CREW MEMBER from Last 3 Months or Most Recently Relevant to Health Maintenance Results * HM COLONOSCOPY (03/09/2020 3:10 PM MODULAR HOME CREW MEMBER) Elizabeth Aaron DO HEALTH MAINTENANCE Fi nal Result from Last 3 Months or Most Recently Relevant to Health Maintenance Insurance [employer] Care Teams Industrial Maintenance Tech Relationship Specialty Start Date End Date Osvaldo Rios MD [address] [address] PCP - General Family Medicine 12/06/23
== END 2024-07-26 10:16 | disposition home or self-care (01) ==
PROVIDERS: PCP Family Medicine; Visit Provider Podiatrist
DX: M77.41 Metatarsalgia, right foot (principal)
CPT/HCPCS: 73718